=== PATIENT | female | born 1980 | race Two or more races ===

== ENCOUNTER 2018-04-20 14:11 | Emergency (ER) | payer OTHER ==
[~2018-04-20] VITALS: Ht 165.1 cm; Wt 49.0 kg
[2018-04-20] MEDS ORDERED: PRENATAL + DHA1 EAC1 PO (14:17)
[2018-04-20] MEDS ORDERED: LORATADINE10 M2 PO (14:18)
== END 2018-04-20 22:13 | disposition home or self-care (01) ==
LOC: ER 14:11
DX: O20.0 Threatened abortion (principal); Z34.81 Encounter for supervision of other normal pregnancy, first trimester

== ENCOUNTER 2018-04-22 21:53 | Day surgery (SDC) | payer OTHER ==
[~2018-04-22] VITALS: Ht 165.1 cm; Wt 49.0 kg
[~2018-04-22 21:53] MED LIST: LORATADINE10 M2 PO; PRENATAL + DHA1 EAC1 PO
== END 2018-04-23 22:00 | disposition home or self-care (01) ==
LOC: ER 21:53 → CIR.AMB 23:00 → O/R 04-23 13:48 → SEC-K 04-23 13:48 → ER 04-23 13:48 → SEC-K 04-23 14:50 → O/R 04-23 14:50 → CIR.AMB 04-23 15:03 → EDSTATUS 04-23 15:15 → CIR.AMB 04-23 18:00 → O/R 04-23 22:30
DX: O03.4 Incomplete spontaneous abortion without complication (principal)